=== PATIENT | male | born 1995 | race Asian ===

== ENCOUNTER 2019-03-16 12:37 | Emergency (ER) | payer OTHER ==
[~2019-03-16] VITALS: Ht 185.4 cm; Wt 74.8 kg
[2019-03-16 13:48] LABS: PLATELET COUNT 216 K/uL (142-355)
[2019-03-16 14:13] LABS: POTASSIUM 4.6 mmol/L (3.6-5.2)
[2019-03-16 15:00] VITALS: BP 127/73; TEMP 97.6
== END 2019-03-16 15:00 ==
LOC: ED 12:37
PROVIDERS: Emergency Medicine
DX: S09.90XA Unspecified injury of head, initial encounter (principal); T65.92XA Toxic effect of unspecified substance, intentional self-harm, initial encounter; W01.10XA Fall on same level from slipping, tripping and stumbling with subsequent striking against unspecified object, initial encounter; Y92.149 Unspecified place in prison as the place of occurrence of the external cause
CPT/HCPCS: 80053; 80307; 80320; 80329; 81000; 83735; 85027; 99283